=== PATIENT | female | born 1990 | race Native Hawaiian/Other Pacific Islander ===

== ENCOUNTER 2017-05-15 17:22 | Emergency (ER) | payer OTHER ==
[2017-05-15] MEDS ORDERED: IBUPROFEN 600 MG TAB PO STA (17:39)
[2017-05-15] MEDS ORDERED: ACETAMINOPHEN TAB 500 MG TAB PO STA (17:39)
--- NOTE | 2017-05-15 17:42 | ED ---
Fever HPI - General Chief Complaint: Fever Stated Complaint: POSS FLU Time Seen by Provider: 05/15/17 17:32 Source: patient, RN notes reviewed Mode of arrival: ambulatory Limitations: no limitations - History of Present Illness Initial Comments: 26-year-old female presents emergency Department chief complaint fever not feeling well. Patient states she developed fever and chills last night and has progressed until today. She has not taken any Tylenol or Motrin though she doesn't smoke, cold and flu medication. She states that she is been having hot rashes, cold chills and 2 episodes of vomiting. She does complain of some mild back pain states that she has chronic back pain. Patient denies any abdominal pain. Denies any dysuria, hematuria, headache, dizziness, neck pain, neck stiffness. She's had no cold like symptoms including sore throat, ear pain, cough, runny nose. She denies any sick contacts or recent traveling. - Related Data Home Medications Medication Instructions Recorded Confirmed Albuterol Inhaler [Ventolin Hfa 1 - 2 puff INHALATION RT-Q6H PRN 05/15/17 Inhaler] Unknown Control 1 tab PO DAILY 05/15/17 05/15/17 Previous Rx's Medication Instructions Recorded Ciprofloxacin HCl [Cipro] 500 mg PO Q12HR #20 tablet 05/15/17 Allergies Allergy/AdvReac Type Severity Reaction Status Date / Time No Known Allergies Allergy Verified 05/15/17 18:05 Review of Systems ROS Statement: Those systems with pertinent positive or pertinent negative responses have been documented in the HPI. ROS Other: All systems not noted in ROS Statement are negative. Past Medical History Past Medical History: No Reported History Additional Past Medical History / Comment(s): OB history: She has had care with Dr Claros since 14 weeks. O+, abs neg, Rub nonimmune, RPR NR, Hep B neg. GBS neg, neg 1hr GTT, normal anatomy US. History of Any Multi-Drug Resistant Organisms: None Reported Past Surgical History: Section Past Anesthesia/Blood Transfusion Reactions: No Reported Reaction Past Psychological History: No Psychological Hx Reported Smoking Status: Former smoker Past Alcohol Use History: None Reported Past Drug Use History: Marijuana - Past Family History Mother Family Medical History: Diabetes Mellitus General Exam Limitations: no limitations General appearance: alert, in no apparent distress Head exam: Present: atraumatic, normocephalic, normal inspection Eye exam: Present: normal appearance, PERRL, EOMI. Absent: scleral icterus, conjunctival injection, periorbital swelling ENT exam: Present: normal exam, normal oropharynx, mucous membranes moist, TM's normal bilaterally, normal external ear exam Neck exam: Present: normal inspection, full ROM. Absent: tenderness, meningismus, lymphadenopathy Respiratory exam: Present: normal lung sounds bilaterally. Absent: respiratory distress, wheezes, rales, rhonchi, stridor Cardiovascular Exam: Present: normal rhythm, tachycardia, normal heart sounds. Absent: systolic murmur, diastolic murmur, rubs, gallop, clicks GI/Abdominal exam: Present: soft, normal bowel sounds. Absent: distended, tenderness, guarding, rebound, rigid Back exam: Absent: CVA tenderness (R), CVA tenderness (L) Neurological exam: Present: alert, oriented X3, CN II-XII intact Skin exam: Present: warm, dry, intact, normal color. Absent: rash Course Vital Signs 05/15/17 05/15/17 05/15/17 17:29 18:01 18:29 Temperature 101.2 F H Pulse Rate 114 H 89 Respiratory 18 18 18 Rate Blood Pressure 117/67 127/58 O2 Sat by Pulse 99 100 Oximetry Medical Decision Making - Medical Decision Making 26-year-old female presented for fever or chills. Patient had no specific complaints. Patient was found to have urinary tract infection she does not have any flank pain at this time though she does have symptoms of pyelonephritis with fever, white count and urinary tract infection. Patient was advised that she needs to stay in the hospital for IV antibiotics. Patient is refusing because she has a [id number] at home. Patient understands that this is a risk of going home at this point. She is advised to return if she is able to tunneller or if any worsening symptoms. - Lab Data Result diagrams: 05/15/17 18:00 05/15/17 18:00 Lab Results 05/15/17 05/15/17 05/15/17 Range/Units 18:00 18:00 18:00 WBC 14.1 H (3.8-10.6) k/uL RBC 4.92 (3.80-5.40) m/uL Hgb 14.0 (11.4-16.0) gm/dL Hct 41.5 (34.0-46.0) % MCV 84.5 (80.0-100.0) fL MCH 28.4 (25.0-35.0) pg MCHC 33.6 (31.0-37.0) g/dL RDW 12.7 (11.5-15.5) % Plt Count 216 (150-450) k/uL Neutrophils % 89 % Lymphocytes % 6 % Monocytes % 4 % Eosinophils % 1 % Basophils % 0 % Neutrophils # 12.5 H (1.3-7.7) k/uL Lymphocytes # 0.9 L (1.0-4.8) k/uL Monocytes # 0.5 (0-1.0) k/uL Eosinophils # 0.1 (0-0.7) k/uL Basophils # 0.1 (0-0.2) k/uL Sodium 137 (137-145) mmol/L Potassium 3.8 (3.5-5.1) mmol/L Chloride 104 (98-107) mmol/L Carbon Dioxide 19 L (22-30) mmol/L Anion Gap 14 mmol/L BUN 4 L (7-17) mg/dL Creatinine 0.76 (0.52-1.04) mg/dL Est GFR (MDRD) Af Amer >60 (>60 ml/min/1.73 sqM) Est GFR (MDRD) Non-Af >60 (>60 ml/min/1.73 sqM) Glucose 96 (74-99) mg/dL Plasma Lactic Acid Rod (0.7-2.0) mmol/L Calcium 9.1 (8.4-10.2) mg/dL Total Bilirubin 0.6 (0.2-1.3) mg/dL AST 25 (14-36) U/L ALT 41 (9-52) U/L Alkaline Phosphatase 93 (38-126) U/L Total Protein 7.3 (6.3-8.2) g/dL Albumin 4.1 (3.5-5.0) g/dL Urine Color Urine Appearance (Clear) Urine pH (5.0-8.0) Ur Specific [place] (1.001-1.035) Urine Protein (Negative) Urine Glucose (UA) (Negative) Urine Ketones (Negative) Urine Blood (Negative) Urine Nitrite (Negative) Urine Bilirubin (Negative) Urine Urobilinogen (<2.0) mg/dL Ur Leukocyte Esterase (Negative) Urine RBC (0-5) /hpf Urine WBC (0-5) /hpf Ur Squamous Epith Cells (0-4) /hpf Urine Bacteria (None) /hpf Urine Mucus (None) /hpf Influenza Type A RNA Not Detected (Not Detectd) Influenza Type B (PCR) Not Detected (Not Detectd) 05/15/17 05/15/17 Range/Units 18:00 18:00 WBC (3.8-10.6) k/uL RBC (3.80-5.40) m/uL Hgb (11.4-16.0) gm/dL Hct (34.0-46.0) % MCV (80.0-100.0) fL MCH (25.0-35.0) pg MCHC (31.0-37.0) g/dL RDW (11.5-15.5) % Plt Count (150-450) k/uL Neutrophils % % Lymphocytes % % Monocytes % % Eosinophils % % Basophils % % Neutrophils # (1.3-7.7) k/uL Lymphocytes # (1.0-4.8) k/uL Monocytes # (0-1.0) k/uL Eosinophils # (0-0.7) k/uL Basophils # (0-0.2) k/uL Sodium (137-145) mmol/L Potassium (3.5-5.1) mmol/L Chloride (98-107) mmol/L Carbon Dioxide (22-30) mmol/L Anion Gap mmol/L BUN (7-17) mg/dL Creatinine (0.52-1.04) mg/dL Est GFR (MDRD) Af Amer (>60 ml/min/1.73 sqM) Est GFR (MDRD) Non-Af (>60 ml/min/1.73 sqM) Glucose (74-99) mg/dL Plasma Lactic Acid Rod 0.9 (0.7-2.0) mmol/L Calcium (8.4-10.2) mg/dL Total Bilirubin (0.2-1.3) mg/dL AST (14-36) U/L ALT (9-52) U/L Alkaline Phosphatase (38-126) U/L Total Protein (6.3-8.2) g/dL Albumin (3.5-5.0) g/dL Urine Color Yellow Urine Appearance Cloudy H (Clear) Urine pH 6.0 (5.0-8.0) Ur Specific [place] 1.022 (1.001-1.035) Urine Protein 1+ H (Negative) Urine Glucose (UA) Negative (Negative) Urine Ketones 3+ H (Negative) Urine Blood Trace H (Negative) Urine Nitrite Positive H (Negative) Urine Bilirubin Negative (Negative) Urine Urobilinogen <2.0 (<2.0) mg/dL Ur Leukocyte Esterase Large H (Negative) Urine RBC 9 H (0-5) /hpf Urine WBC 65 H (0-5) /hpf Ur Squamous Epith Cells 26 H (0-4) /hpf Urine Bacteria Many H (None) /hpf Urine Mucus Moderate H (None) /hpf Influenza Type A RNA (Not Detectd) Influenza Type B (PCR) (Not Detectd) Disposition Clinical Impression: Pyelonephritis Disposition: HOME SELF-CARE Condition: Stable Instructions: Kidney Infection (ED) Additional Instructions: Please return to the Emergency Department if symptoms worsen or any other concerns. Prescriptions: Ciprofloxacin HCl [Cipro] 500 mg PO Q12HR #20 tablet Referrals: Mateus Conn MD [Primary Care Provider] - 1-2 days Time of Disposition: 19:07
[2017-05-15] MEDS: SODIUM CHLORIDE 0.9% 500 ML IV SCH ×3 (17:55→19:19)
[2017-05-15 18:17] LABS: Basophils # (A) 0.1 k/uL (0-0.2); Basophils % (A) 0 %; CH 28.5; CHCM 33.9; Eosinophils # (A) 0.1 k/uL (0-0.7); Eosinophils % (A) 1 %; HCT 41.5 % (34.0-46.0); Luc # (Auto) 0.07; Luc % (Auto) 1; Lymphocytes # (A) 0.9 k/uL (1.0-4.8); Lymphocytes % (A) 6 %; MCH 28.4 pg (25.0-35.0); MCHC 33.6 g/dL (31.0-37.0); MCV 84.5 fL (80.0-100.0); Mean Platelet Volume 8.2; Monocytes # (A) 0.5 k/uL (0-1.0); Monocytes % (A) 4 %; Neutrophils # (A) 12.5 k/uL (1.3-7.7); Neutrophils % (A) 89 %; RBC 4.92 m/uL (3.80-5.40); RDW 12.7 % (11.5-15.5); WBC 14.1 k/uL (3.8-10.6); WBC (Perox) 13.75
[2017-05-15 18:24] LABS: ALT 41 U/L (9-52); AST 25 U/L (14-36); Alkaline Phosphatase 93 U/L (38-126); Anion Gap 14 mmol/L; Blood Urea Nitrogen 4 mg/dL (7-17); Calcium 9.1 mg/dL (8.4-10.2); Carbon Dioxide 19 mmol/L (22-30); Chloride 104 mmol/L (98-107); Glucose 96 mg/dL (74-99); Non-African American GFR(MDRD) >60 (>60 ml/min/1.73 sqM); Potassium 3.8 mmol/L (3.5-5.1); Sodium 137 mmol/L (137-145); Total Bilirubin 0.6 mg/dL (0.2-1.3); Total Protein 7.3 g/dL (6.3-8.2)
[2017-05-15 18:49] LABS: Appearance,Urine Cloudy (Clear); Bacteria,Urine Many /hpf; Bilirubin,Urine Negative (Negative); Glucose,Urine (UA) Negative (Negative); Ketones,Urine 3+ (Negative); Leukocyte Esterase,Urine Large (Negative); Mucus,Urine Moderate /hpf; Nitrite,Urine Positive (Negative); Particle Count 32643; Protein,Urine 1+ (Negative); RBC,Urine 9 /hpf (0-5); Specific Gravity,Urine 1.022 (1.001-1.035); Squamous Epithelial Cell,Urine 26 /hpf (0-4); UA Billing (MACRO vs. MICRO) MICRO; Urobilinogen,Urine <2.0 mg/dL (<2.0); WBC,Urine 65 /hpf (0-5)
--- NOTE | 2017-05-15 18:52 | XR ---
EXAMINATION TYPE: XR chest 2V DATE OF EXAM: 05/15/2017 COMPARISON: None HISTORY: 26-year-old female with fever TECHNIQUE: PA and lateral views FINDINGS: The cardiomediastinal silhouette, aorta, and pulmonary vasculature are within normal limits. Lungs an d pleural spaces are clear. IMPRESSION: No acute cardiopulmonary process.
[2017-05-15] MEDS ORDERED: cefTRIAXone 2,000 MG in SODIUM CHLORIDE 0.9% 100 ML IVPB STA (19:03)
[2017-05-15 19:58] VITALS: BP 113/64; PULSE 72; RESP 16; TEMP 98.1
== END 2017-05-15 20:13 | disposition home or self-care (01) ==
LOC: EC 17:22
DX: N12 Tubulo-interstitial nephritis, not specified as acute or chronic (principal); R00.0 Tachycardia, unspecified; Z79.3 Long term (current) use of hormonal contraceptives; Z87.891 Personal history of nicotine dependence
CPT/HCPCS: 99283 ×2; 96365 ×2; 96361 ×2; 36415; 80053; 83605; 85025; 81001; 87040; 87086; 87077; 87186; 87502; 71020; J0696

== ENCOUNTER → 2018-09-09 | Outpatient (CLI) | payer OTHER ==
[2018-09-09 13:24] VITALS: BP 117/82; PULSE 70; RESP 18; TEMP 98; BMI 31.1
--- NOTE | 2018-09-09 14:02 | P.GSHP ---
History of Present Illness H&P Date: 09/09/18 Chief Complaint: itching bilateral breast The patient is a 27 year old white female with a complaint of itching in her right breast for about 1 month. The pain has also began to occur in the left breast at this time. The patient does not feel any lumps in her breasts. The patient has no nipple discharge or skin changes. The patient's last mammogram was approximately 10 years ago. The patient has had no trauma or infection in her breast. The patient cannot see anything on her skin and does not have itching in the other parts of her body. The patient has not changed in a laundry detergent or what she washes with lately. The patient has not changed her bras lately. The patient is not related to her menstrual period. She has tried hydrocortisone cream patient not alleviate the itching. The patient has attempted body butters and this has not helped. She is also attempted Aquaphor ointment which is like a petroleum jelly, her son uses this for eczema and this has not helped. The patient drinks coffee and soda throughout the day. The patient smokes approximately 5 cigarettes per day. The patient eats chocolate about once a month. Family History: 1. maternal grandmother: breast 2. maternal great aunt: breast (2 aunts) 3. mother: lung cancer 4. maternal aunt: lung cancer Hormonal history: Menarche: 11 Pregnancies: 1, at 25, 1 child, breast fed: Negative Periods: Regular, last menstrual period 3 weeks ago control pills: 10 years on them now hormones: none Past surgical history: 1. Past medical history: 1. Asthma Social history: Smokin cigarettes per day Alcohol: Negative Drugs: Negative - Constitutional Constitutional: Denies chills, Denies fever - EENT Eyes: denies blurred vision, denies pain Ears: deny: decreased hearing, tinnitus Ears, nose, mouth and throat: Reports headache, Denies sore throat - Breasts Breasts: bilateral: as per HPI - Cardiovascular Cardiovascular: Denies chest pain, Denies shortness of breath - Respiratory Comment: asthma Respiratory: Denies cough, Denies 7 - Gastrointestinal Gastrointestinal: Denies abdominal pain, Denies diarrhea, Denies nausea, Denies vomiting - Genitourinary (Female) Genitourinary: Denies dysuria, Denies hematuria - Menstruation Menstruation: Reports period normal - Musculoskeletal Comment: arthritis Musculoskeletal: Denies myalgias - Integumentary Integumentary: Reports as per HPI, Reports pruritus - Neurological Neurological: Denies numbness, Denies weakness - Psychiatric Psychiatric: Denies anxiety, Denies depression - Endocrine Endocrine: Denies fatigue, Denies weight change - Hematologic/Lymphatic Comment: none - Allergic/Immunologic Allergic/Immunologic: Reports seasonal allergies Past Medical History Past Medical History: No Reported History Additional Past Medical History / Comment(s): OB history: She has had care with Dr Claros since 14 weeks. O+, abs neg, Rub nonimmune, RPR NR, Hep B neg. GBS neg, neg 1hr GTT, normal anatomy US. History of Any Multi-Drug Resistant Organisms: None Reported Past Surgical History: Section Past Anesthesia/Blood Transfusion Reactions: No Reported Reaction Past Psychological History: No Psychological Hx Reported Smoking Status: Current every day smoker Past Alcohol Use History: None Reported Past Drug Use History: None Reported - Past Family History Mother Family Medical History: Diabetes Mellitus Father Family Medical History: Asthma Medications and Allergies Home Medications Medication Instructions Recorded Confirmed Type Albuterol Inhaler [Ventolin Hfa 1 - 2 puff INHALATION RT-Q6H PRN 05/15/17 History Inhaler] Unknown Control 1 tab PO DAILY 05/15/17 09/09/18 History Cholecalciferol [Vitamin D3] 1,000 unit PO DAILY 09/09/18 09/09/18 History Allergies Allergy/AdvReac Type Severity Reaction Status Date / Time No Known Allergies Allergy Verified 09/09/18 13:29 Surgical - Exam Vital Signs Temp Pulse Resp BP Pulse Ox 98 F 70 18 117/82 99 09/09/18 13:18 09/09/18 13:18 09/09/18 13:18 09/09/18 13:18 09/09/18 13:18 BMI 31.2 - General well developed, well nourished, no distress - Eyes normal ocular movement - ENT no hearing loss, no congestion - Neck no masses, trachea midline - Respiratory normal respiratory effort, clear to auscultation - Cardiovascular Rhythm: regular Heart Sounds: normal: S1, S2 - Abdomen Abdomen: soft - Integumentary Excoriation where the patient has been itching in the medial aspect of the right breast, no skin changes noted otherwise within the periareolar region bilaterally Tattoo left chest wall - Neurologic no disoriented, no combative - Musculoskeletal normal gait - Psychiatric oriented to time, oriented to person, oriented to place, speech is normal, memory intact Breast examination: Right breast: Multi-positional exam fibrocystic changes no dominant masses or nodules of concern, mild skin excoriation medial aspect of the breast where the patient has been itching no skin lesions of concern noted at the nipple areolar region Right axilla: No adenopathy of concern Left breast: Multi-positional exam fibrocystic changes no dominant masses or nodules of concern, no skin changes of concern appreciated Left axilla: No adenopathy of concern Assessment and Plan Assessment: Impression: 1. Pruritus right nipple area over area 2. Mild skin excoriation medial aspect of right breast from itching 3. Asthma 4. No recent changes in laundry products or clothing 5. Attempts at hydrocortisone creams, and lotions have not caused resolution of the itching 6. Fibrocystic breast disease Plan: 1. Bilateral breast ultrasound to rule out any lesions within the breast 2. Patient will attempt and antifungal agents to the area which is itching 3. Follow-up in 1 week 4. If patient continues to have symptoms would consider dermatology consultation Cc: Dr. Cooley of an
== END ==
LOC: WWCWWP 12:54
PROVIDERS: ATTEND Surgery
DX: Z53.9 Procedure and treatment not carried out, unspecified reason (principal)

== ENCOUNTER → 2018-09-21 | Outpatient (CLI) | payer OTHER ==
--- NOTE | 2018-09-21 10:16 | USB ---
Reason for exam: clinical finding. History: Patient is nulliparous. Family history of breast cancer in maternal grandmother at age 45, breast cancer in maternal aunt, and breast cancer in paternal aunt. Indicated problem(s): pain in both breasts. Physical Findings: Nurse Summary: Patient complains of bilateral breast itching x 1 month, right breast severe, sharp pains (nurse mj). US Breast BILAT Right complete breast ultrasound includes all four quadrants, the retroareolar region and axilla. Finding demonstrates no cystic or solid lesion seen. Left complete breast ultrasound includes all four quadrants, the retroareolar region and axilla. Finding demonstrates no cystic or solid lesion seen. These results were verbally communicated with the patient and result sheet given to the patient on 09/21/18. ASSESSMENT: Negative, BI-RAD 1 RECOMMENDATION: Routine screening mammogram of both breasts at age 34. Manage on a clinical basis with regard to pain and itch.
== END ==
LOC: RADUSWWP 09:18
PROVIDERS: ATTEND Surgery
DX: N64.4 Mastodynia (principal)

== ENCOUNTER → 2018-09-29 | Outpatient (CLI) | payer OTHER ==
[2018-09-29 14:26] VITALS: BP 109/77; PULSE 106; RESP 16; TEMP 98.2; BMI 31.1
--- NOTE | 2018-09-29 14:30 | P.PN ---
Progress Note - Text Progress Note Date: 09/29/18 Patrizia is a 28-year-old female with a complaint of itching in her right breast for approximately one month. She was seen initially and [id number]. At that time showed attempted bilateral butters which have not helped. She also attempted Aquaphor ointment which is like a petroleum jelly and this has not helped either. She does drink coffee and soda throughout the day. She smokes approximately 5 cigarettes per day. She eats chocolate approximately once a month. The patient had bilateral breast ultrasound performed and which were felt to be negative BIRADS 1. The patient states she still has persistent itching in her breast. The patient has been using nystatin on her breast and this has had some relief of the symptoms but not resolution. Physical examination: Lungs: Clear Heart: Regular rate and rhythm Patient has tattoos Examination of the breast does not reveal any specific changes in the skin of either breast and nothing specific. The patient states she has itching the Impression: 1. Pruritus bilateral breast greatest in the right nipple area 2. Asthma 3. Fibrocystic breast disease Plan: 1. Have recommended that the patient be seen by dermatology as I am not certain as to the cause of the pruritus 2. follow up here as needed Cc: Dr. Morel
== END | disposition home or self-care (01) ==
LOC: WWCWWP 13:53
PROVIDERS: ATTEND Surgery
DX: Z53.9 Procedure and treatment not carried out, unspecified reason (principal)

== ENCOUNTER → 2022-07-03 | Outpatient (CLI) | payer OTHER | END | disposition home or self-care (01) | LOC: LABWHC1 12:05 | PROVIDERS: ATTEND Obstetrics & Gynecology | DX: N94.89 Other specified conditions associated with female genital organs and menstrual cycle (principal); N91.2 Amenorrhea, unspecified; N92.6 Irregular menstruation, unspecified | CPT/HCPCS: 36415; 84702 ==